=== PATIENT | male | born 1975 | race Caucasian/White ===

== ENCOUNTER → 2023-04-15 14:04 | Outpatient (CLI) | payer OTHER, SELFPAY ==
--- NOTE | ~2023-04-15 | XR_ITS ---
XR abdomen/kub 1V 04/15/2023 15:28 Indication: Left flank pain Procedure: KUB Comparison: Comparison to multiple prior studies sequentially, with oldest reviewed study dated 01/05. Findings: There is a proximal left ureteral stone at the L3-4 level measuring approximately 10 x 4 mm . Bowel gas pattern nonobstructive. Lung bases are unremarkable. No acute osseous abnormality. Impression: 1: Proximal left ureteral stone at the L3-4 level measuring 10 mm. Reviewed, dictated and finalized at location B. ER WORKER Impression: 1: Proximal left ureteral stone at the L3-4 level measuring 10 mm.
== END ==
DX: R10.9 Unspecified abdominal pain (principal); N20.1 Calculus of ureter
CPT/HCPCS: 74018

== ENCOUNTER 2023-04-28 08:42 | Outpatient (CLI) | payer OTHER, SELFPAY ==
--- NOTE | 2023-04-28 15:29 | ECG_ITS ---
Measurements Intervals [place] Rate: 74 P: 34 MS: 162 QRS: -21 QRSD: 102 T: -17 QT: 347 QTc: 385 Interpretive Statements SINUS RHYTHM BORDERLINE LEFT AXIS DEVIATION [QRS AXIS < -20] VOLTAGE CRITERIA FOR LVH [MEETS CRITERIA IN ONE OF: R(aVL), S(V1), R(V5), R(V5/V6)+S(V1)] NONSPECIFIC T-WAVE ABNORMALITY ABNORMAL ELECTROCARDIOGRAM NO PREVIOUS ECG AVAILABLE FOR COMPARISON Electronically Signed On 04-28-2023 18:09:33 PUTTY MIXER AND APPLIER by Sukumar Wick M.D.
[2023-04-28 16:15] LABS: INR 0.9; Prothrombin Time 12.8 Seconds (11.1-14.7)
[2023-04-28 16:16] LABS: Partial Thromboplastin Time 29.3 SECONDS (22.3-36.8)
== END 2023-04-28 08:43 | disposition home or self-care (01) ==
PROVIDERS: Visit Provider Urology
DX: Z01.818 Encounter for other preprocedural examination (principal); N20.0 Calculus of kidney; I10 Essential (primary) hypertension; R94.31 Abnormal electrocardiogram [ECG] [EKG]; R93.1 Abnormal findings on diagnostic imaging of heart and coronary circulation
CPT/HCPCS: 36415; 85610; 85730; 87086; 93005

== ENCOUNTER 2023-05-06 04:11 | Day surgery (SDC) | payer OTHER, SELFPAY ==
[2023-04-26 11:47] VITALS: BMI 30.5
--- NOTE | 2023-04-26 11:52 | PC.NURSE ---
Report to the Outpatient Waiting Room, entrance under the green pavilion located off [facility], at time 7:30 on date 05/06/23. Planned Procedure Time: 9:30. Time changes happen often and if your time is changed the preop area will call you the afternoon before. - You and your visitor will be asked to self-screen and do not enter if you have any COVID symptoms. - A mask is optional within the hospital at this time. Patients may have clear liquids (water, carbonated beverages, clear teas, apple juice) until 3 hours prior to surgery (6:30) with a maximum of 20 ounces. - No food from midnight until time of surgery Take the following medications with a SIP of water the morning of surgery: AMLODIPINE DO NOT STOP ANY OF YOUR OTHER PRESCRIPTION MEDICATIONS PRIOR TO SURGERY ?EXCEPT THE FOLLOWING Medications to discontinue per physician: N/A Date to take last dose: N/A Please no make-up, nail ukrainian, hairspray, perfume, deodorant, or body powder the day of surgery. No jewelry (including any body piercings) or valuables the day of surgery, leave them at home. Please take a shower or bath the night before, or the morning of, surgery with an antibacterial soap. Wear comfortable, loose fitting clothing. - Jewelry must be removed prior to entering the operating room. Rings and piercings that are not removed may be cut off. - The hospital will not accept responsibility for valuables. - Please leave all valuables, including medications, at home the day of surgery. If you are going home after surgery, a licensed fast food delivery driver must drive you home. - NO public transportation without another adult if you receive anesthesia. - We recommend that an adult stay with you for 24 hours following discharge. - We also recommend that you do not drive, make important decision, drink alcoholic beverages, or take any drugs that were not prescribed by your health care provider for at least 24 hours after your discharge time. Follow any additional instructions given to you from your surgeon. If you or anyone in your household have experienced Covid symptoms in the past week, please notify your surgeon or the nurse liaison at the phone number below for possible testing. Telephone instructions given to PT - ISIDRO SEXTON and asked if any additional questions and then verbalized understanding. Patient advised to call surgeon office or pre surgery nurse liaison [phone] if any additional questions.
[2023-05-06] VITALS (8 sets, daily range): BP systolic 120–153; BP diastolic 76–94; PULSE 48–66; RESP 14–18; TEMP 36.6; O2SAT 95–99
--- NOTE | ~2023-05-06 | XR_ITS ---
. EXAMINATION: XR abdomen/kub 1V DATE: 05/06/2023 07:34 INDICATION: Left kidney stone. TECHNIQUE: A supine view of the abdomen on 2 radiographs was obtained. COMPARISON: Abdomen radiographs 04/15/2023, 07/23/2017 FINDINGS: There are no dilated loops of bowel. Calcifications in the pelvis are likely phleboliths. T here is 11 x 4 mm stone in proximal left ureter at L3. IMPRESSION: 1. Unchanged stone in proximal left ureter. Reviewed, dictated and finalized at location A. 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
--- NOTE | 2023-05-06 06:33 | WPDHPUPDATE1 ---
History and Physical Update Update Date/Time: 05/06/23 06:33 History and Physical has been reviewed, including an updated exam of the patient. There are NO changes in the patient's condition. Risks, benefits, and alternatives have been discussed and questions answered. Patient agrees to proceed with procedure.
[2023-05-06] MEDS: ceFAZolin 2 GM/D5W 50 ML 2 GM/50 ML BAG IVPB (08:17)
--- NOTE | 2023-05-06 08:31 | WPDANESEPPF ---
Anes - Initial Pre Proc Eval Procedure: Operation Date: 05/06/23 09:30 Proposed Procedures p Left Extracorporeal Shock Wave Lithotripsy - Wild George MD Date/Time: 05/06/23 08:31 Surgeon: Wild George MD Pre Op Diagnosis: left renal stone Patient Data Age: 47 Gender: M Height: 1.83 m Weight: 102.1 kg Last Vital Signs Temp 36.6 C 05/06/23 07:46 Pulse 65 05/06/23 07:46 Resp 16 05/06/23 07:46 BP 153/94 H 05/06/23 07:46 Pulse Ox 98 05/06/23 07:46 O2 Del Method Room Air 05/06/23 07:46 Allergies Allergy/AdvReac Type Severity Reaction Status Date / Time Penicillins AdvReac Unknown N&V Verified 05/06/23 07:36 Home Medications Medication Instructions Recorded Confirmed Type amlodipine 10 mg tablet 10 mg PO DAILY 04/26/23 04/26/23 History omeprazole 20 mg tablet,delayed 20 mg PO DAILY 04/26/23 04/26/23 History release propranolol 80 mg capsule,24 80 mg PO HS 04/26/23 04/26/23 History hr,extended release Patient hx anesthesia problems: post op nausea/vomiting Family hx anesthesia problems: none Results Review: All pre-operative results and documents have been reviewed as part of the pre-operative evaluation. [facility] Social History Social History Smoking status: Never smoker Alcohol intake: current Drinks per week: 3 Substance use: never Substance use type: does not use Living arrangements: with family Spiritual care concerns: No Anes - Eval Final PreProcedure Day of Procedure 05/06/23 08:31 Patient weight: obese Heart: regular rate and rhythm Lungs: clear to auscultation Airway: Mallampati scale class II Neurological: alert and oriented Last oral intake: >/= 8 hours ASA classification: III Emergent: no Anesthetic plan: proceed Anesthesia type and monitoring: general LMA and standard monitoring Results Review: All pre-operative results and documents have been reviewed as part of the pre-operative evaluation. Informed Consent: The patient's anesthetic plan and its attendant risks and benefits were discussed with the patient/family/POA. Questions were solicited and answers provided to the satisfaction of the patient/family/POA.
[2023-05-06] MEDS: LACTATED RINGERS 1,000 ML 30 ML IV CONT ×2 (08:44→10:54)
[2023-05-06] MEDS: SCOPOLAMINE 1 MG PATCH 1 PATCH TRANSDERM (08:44)
--- NOTE | 2023-05-06 09:36 | W.PM.PROC2 ---
Procedure Note - Detailed Date of Procedure 05/06/23 Pre-op Diagnosis Left ureteral stone Post-op Diagnosis Same Procedure Performed Left ESWL Surgeon Wild George MD Anesthesia General Description of Procedure The patient was brought to the operative suite where he was placed in the supine position on the [place] lithotripsy table. The focal point of the lithotripter was placed at a 1x4mm left mid-ureteral calculus. A total of 3000 shocks were delivered at a power setting of 1-6. There appeared to be good fragmentation of the stone. The patient tolerated the procedure well and was taken to the recovery room in good condition. Given patient's tolerance this thus far and intolerance of stents in the past we opted to do this procedure without placing a stent Drains No Packing No Pathology None sent Complications No immediate complications Condition Stable Disposition PACU
[2023-05-06] MEDS: KETOROLAC 30 MG/ML VIAL (*BKC) 15 MG IV PUSH (10:01)
== END 2023-05-06 11:33 | disposition home or self-care (01) ==
PROVIDERS: Visit Provider Urology
PROC: (CPT 50590; principal; 2023-05-06 09:30)
DX: N20.1 Calculus of ureter (principal); I10 Essential (primary) hypertension
CPT/HCPCS: 50590; 36415; 74018; 85610; 85730; 87086; 93005; A9270; J0690; J1100; J1885; J2405; J2704; J7120

== ENCOUNTER 2023-05-20 15:52 | Outpatient (CLI) | payer OTHER, SELFPAY ==
--- NOTE | ~2023-05-20 | XR_ITS ---
EXAM: XR abdomen/kub 1V DATE: 05/20/2023 16:06 HISTORY: N20.1 - Calculus of ureter, follow up . COMPARISON: 05/06/2023. FINDINGS: Clear lung bases. Normal bowel gas pattern. No organomegaly. No abnormal abdominal calcifi cation. The previously described ureteral stone is no longer visualized. Regional bones and soft tiss ues normal for age. IMPRESSION: The previously described ureteral stone has passed or was removed. Otherwise unremarkable xray abdomen findings. Reviewed, dictated and finalized at location K. 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
== END 2023-05-20 15:53 | disposition home or self-care (01) ==
LOC: ANHIMG 15:54
PROVIDERS: Visit Provider Urology
DX: N20.1 Calculus of ureter (principal)
CPT/HCPCS: 74018